=== PATIENT | female | born 1990 | race Caucasian/White ===

== ENCOUNTER 2022-03-06 14:31 | Emergency (ER) | payer OTHER, SELFPAY ==
--- NOTE | 2022-03-06 14:34 | ED.EAR ---
HPI - Ear Problem General Chief complaint: Ear Stated complaint: right ear pressure, dischard Time Seen by Provider: 03/06/22 14:37 Source: patient and RN notes reviewed History of Present Illness HPI Narrative: Patient is a 31-year-old female who presents the urgent care with complaints of right ear pain and pressure. Patient states that she noticed a bump on the ear a couple days ago which popped and has had drainage since last night. Patient states she has been taking Tylenol for the pain. Denies of any other upper respiratory complaints. Patient also use peroxide in her ear. No other acute complaints. No acute distress noted. Patient aware of the plan of care. Some parts of this dictation were generated by voice recognition software and may contain typographical and/or grammatical inaccuracies. Related Data Allergies Allergy/AdvReac Type Severity Reaction Status Date / Time No Known Allergies Allergy Unverified 03/06/22 14:40 Review of Systems Review of Systems: CONSTITUTIONAL: Denies fever, chills, or sweats. EYES: Denies visual changes, redness, or discharge. ENT: Denies rhinorrhea, congestion, sore throat. Reports of right ear pain and pressure with drainage CARDIOVASCULAR: Denies chest pain, palpitations, or edema. RESPIRATORY: Denies cough or dyspnea. GASTROINTESTINAL: Denies abdominal pain, nausea, vomiting, or diarrhea. GENITOURINARY: Denies dysuria or hematuria. SKIN: Denies rash or itching. MUSCULOSKELETAL: Denies back pain, joint pain, or myalgia. NEUROLOGIC: Denies headache, numbness, or weakness. All other systems reviewed are negative, except as documented in HPI. PMFSH Comments At the time of my signature, I reviewed and agree with the nursing past medical, surgical, social, and family history. There is no relevant family history pertinent to the patient complaint. Exam Narrative: GENERAL: This is a well-nourished, well-developed patient, in no apparent distress. HEAD: normocephalic, atraumatic. EYES: PERRL. Sclera clear/white. Vision is grossly intact. EARS: External ears normal, mild to moderate erythema and edema noted to the right auditory canal with scant yellow drainage and what is consistent with impetigo with yellow crusted vesicular lesion. Left auditory canals clear and without drainage, TMs normal without perforation. Hearing grossly intact. NOSE: External nose normal with no obvious nasal discharge, nares without redness, no rhinorrhea. THROAT: Mucous membranes moist NECK: Neck supple CARDIOVASCULAR: Regular rate and rhythm without murmurs, gallops, or rubs. RESPIRATORY: Clear to auscultation. Breath sounds equal bilaterally. No wheezes, rales, or rhonchi. SKIN: warm, intact with no suspicious lesions or rash, good texture and turgor. NEURO: awake, alert, and oriented to person, place and time. There were no obvious focal neurologic abnormalities. EXTREMITIES: No clubbing, cyanosis, or edema. Course Course Level of Care: Express Care Visit Vital Signs Vital signs: Vital Signs Temperature 98.4 F 03/06/22 14:38 Pulse Rate 98 03/06/22 14:38 Respiratory Rate 20 03/06/22 14:38 Blood Pressure 147/86 H 03/06/22 14:38 Pulse Oximetry 100 03/06/22 14:38 Oxygen Delivery Room Air 03/06/22 14:38 Temperature 98.4 F 03/06/22 14:38 Pulse Rate 98 03/06/22 14:38 Respiratory Rate 20 03/06/22 14:38 Blood Pressure 147/86 H 03/06/22 14:38 Pulse Oximetry 100 03/06/22 14:38 Oxygen Delivery Room Air 03/06/22 14:38 Reviewed-patient is informed that they may have pre-hypertension or hypertension based on a blood pressure reading in the department. I recommend the patient call the primary care provider listed on their discharge instructions or a physician of their choice this week to arrange follow-up for further evaluation of possible pre-hypertension or hypertension. Medical Decision Making MDM Narrative Medical decision making narrative: Advised patient to comple
[2022-03-06 14:38] VITALS: BP 147/86; PULSE 98; RESP 20; TEMP 36.9; O2SAT 100
== END 2022-03-06 15:07 | disposition home or self-care (01) ==
PROVIDERS: Emergency Provider Nurse Practitioner Family
DX: L01.00 Impetigo, unspecified (principal); H60.501 Unspecified acute noninfective otitis externa, right ear
CPT/HCPCS: 99203; G0463

== ENCOUNTER 2022-03-17 09:43 | Emergency (ER) | payer OTHER, SELFPAY ==
[2022-03-17 09:47] VITALS: BP 121/76; PULSE 83; RESP 18; TEMP 36.6; O2SAT 98
--- NOTE | 2022-03-17 09:49 | ED.URI ---
HPI - URI/Sore Throat General Chief Complaint: Upper Respiratory Infection Stated Complaint: sinus bronchial issues Time Seen by Provider: 03/17/22 09:48 Source: patient, RN notes reviewed and old records reviewed Mode of arrival: ambulatory Limitations: no limitations History of Present Illness HPI Narrative: 31-year-old female who presents to express care with complaints sinus congestion and drainage of yellowish mucus, of cough and congestion and wheezing for the past 3 days. Patient states that she was previously treated for an ear infection in the past 2 weeks with Bactrim but that has resolved. Patient reports that she has cough with some noted dyspnea with exertion, and noted wheezing.Patient states that she has been taking Sudafed and using OTC Bronkaid and her inhaler.Patient states that cough is causing upper stomach and rib area discomfort and poor sleep.Patient has had Covid vaccinations.Patient reports that she stopped smoking 2 days ago previous /2-1 ppd for 14 years MD elicited complaint: cough Pertinent past history: asthma and other (Bronchitis, tobacco abuse) Onset (ago): day(s) (3) Description of mucous: yellow Able to tolerate fluids by mouth: Yes Treatments prior to arrival: other (sudafed and bronchaid OTC) Related Data Allergies Allergy/AdvReac Type Severity Reaction Status Date / Time No Known Allergies Allergy Unverified 03/17/22 09:48 Review of Systems Review of Systems: CONSTITUTIONAL: Denies fever, chills, or sweats. EYES: Denies visual changes, redness, or discharge. ENT: Positive for rhinorrhea, congestion,no sore throat, or otalgia. CARDIOVASCULAR: Denies chest pain, palpitations, or edema. RESPIRATORY: Positive cough or dyspnea. GASTROINTESTINAL: Denies abdominal pain, nausea, vomiting, or diarrhea. GENITOURINARY: Denies dysuria or hematuria. SKIN: Denies rash or itching. MUSCULOSKELETAL: Denies back pain, joint pain, or myalgia. NEUROLOGIC: Denies headache, numbness, or weakness. PSYCHIATRIC: Denies anxiety or depression. All systems reviewed & are unremarkable except as noted in HPI and below PMFSH Past Medical History Medical History (Updated 03/17/22 @ 10:13 by Elsy Joshi NP) Asthma Bronchitis Surgical History Surgical History (Updated 03/17/22 @ 09:53 by Elsy Joshi NP) History of appendectomy S/P tonsillectomy and adenoidectomy Social History Social History (Updated 03/18/22 @ 10:48 by Elsy Joshi NP) Smoking packs per day: 0.5 Smoking cigarettes per day: 10.0 Years smoked: 14 Smoking pack-years: 7.00 Smoking status: Former smoker Tobacco type: cigarettes Alcohol intake: current Alcohol use details: social Substance use type: does not use Living arrangements: with family Gender identity (if verbalized by the patient): Female Comments At time of signature, agree with nursing past medical, surgical, social and family history. There is no relevant family history pertinent to the presenting complaint Exam Narrative: GENERAL: Well-appearing, well-nourished, and in no acute distress. HEAD: Normocephalic, atraumatic. EYES: PERRLA and EOMI. ENT:Nares red with some yellow tinged rhinorrhea no epistaxis. Mucous membranes moist.TM's normal with good light reflex, throat with some redness no lesion or exudates no tonsils present, post nasal drainage noted. NECK: Supple. no lymphadenopathy CHEST: Scattered wheezing noted on auscultation. No respiratory distress.SAO2 98% on room air, cough harsh HEART: Regular rate and rhythm. No murmur heard. Normal peripheral pulses. ABDOMEN: Soft, nontender, nondistended, normal active bowel sounds. EXTREMITIES: Normal range of motion. No edema. SKIN: Warm, dry, no rash. NEURO: No focal deficits. Alert and oriented x3. Course Course Level of Care: Express Care Visit Vital Signs Vital signs: Vital Signs Temperature 36.6 C 03/17/22 09:47 Pulse Rate 83 03/17/22 09:47 Respiratory Rate 18
[2022-03-17 09:58] VITALS: BP 121/76; PULSE 83; RESP 18; TEMP 36.6; O2SAT 98
== END 2022-03-17 10:25 | disposition home or self-care (01) ==
PROVIDERS: Emergency Provider Registered Nurse
DX: J40 Bronchitis, not specified as acute or chronic (principal); Z87.891 Personal history of nicotine dependence
CPT/HCPCS: 99213; G0463

== ENCOUNTER 2024-09-16 15:34 | Emergency (ER) | payer BC, SELFPAY ==
[2024-09-16 15:41] VITALS: BP 150/85; PULSE 101; RESP 16; TEMP 36.6; O2SAT 99
--- NOTE | 2024-09-16 16:08 | ED_ITS ---
HPI - Skin/Abscess/Foreign Bdy General Chief complaint: Skin/Abscess/Foreign Body Stated complaint: Skin Sore Time Seen by Provider: 09/16/24 16:09 Source: patient and RN notes reviewed Mode of arrival: ambulatory Limitations: dementia History of Present Illness HPI narrative: 34-year-old female presents with concern for a wound on her abdomen. She reports she was seen in urgent care earlier today and was prescribed antibiotics. However her work is requiring her a note to say if she is contagious or not. She denies fever, body aches, chills, sweats MD complaint: other (Redness) Related Data Home Medications ?Medication ?Instructions ?Recorded ?Confirmed ?Last Taken ?Type mupirocin 2 % topical ointment topical 09/16/24 Unknown History sulfamethoxazole 800 tablet 09/16/24 Unknown History mg-trimethoprim 160 mg tablet Allergies Allergy/AdvReac Type Severity Reaction Status Date / Time No Known Allergies Allergy Unverified 09/16/24 15:56 Review of Systems Review of Systems: CONSTITUTIONAL: Denies malaise, chills, sweats, or fever. EYES: Denies redness, or discharge. ENT: Denies rhinorrhea, congestion, swollen lips, swollen tongue CARDIOVASCULAR: Denies chest pain, palpitations, or edema. RESPIRATORY: Denies cough or dyspnea. GASTROINTESTINAL: Denies abdominal pain, nausea, vomiting SKIN: Reports open wound on her abdomen. Denies purulent drainage, vesicles, bullae, numbness, pain beyond proportion MUSCULOSKELETAL: Denies joint pain or myalgia. NEUROLOGIC: Denies headache. All systems reviewed & are unremarkable except as noted in HPI and below PMFSH Past Medical History Medical History (Updated 09/16/24 @ 16:14 by Catia Roque NP) Bronchitis Asthma Surgical History Surgical History (Updated 03/17/22 @ 09:53 by Elsy Joshi NP) S/P tonsillectomy and adenoidectomy History of appendectomy Social History Social History (Updated 03/18/22 @ 10:48 by Elsy Joshi NP) Smoking packs per day: 0.5 Smoking cigarettes per day: 10.0 Years smoked: 14 Smoking pack-years: 7.00 Smoking status: Former smoker Tobacco type: cigarettes Alcohol intake: current Alcohol use details: social Substance use type: does not use Living arrangements: with family Gender identity (if verbalized by the patient): Female Comments At time of signature, agree with nursing past medical, surgical, social and family history. There is no relevant family history pertinent to the presenting complaint Exam Narrative: GENERAL: Well-appearing, well-nourished, and in no acute distress. HEAD: Normocephalic, atraumatic. EYES: PERRLA, conjunctivae clear ENT: Mucous membranes moist. NECK: Supple. No lymphadenopathy CHEST: Clear to auscultation. No respiratory distress. HEART: Regular rate and rhythm. SKIN: Warm, dry. Open wound a approximately 2 cm in diameter with another 1 cm of erythema and induration surrounding it on the abdomen in skin fold. Tissue bed is beefy red without purulent drainage.. No vesicles, bullae, necrosis, ecchymosis, crepitus noted. NEURO: Alert and oriented x3. PSYCH: Normal mood and affect Course Course Emergency Course: Patient is aware of diagnosis, understands and agrees to treatment plan. Anticipatory guidance given. Patient agrees to follow-up as directed and is aware of reasons to seek care at the emergency department. Portions of this record may have been created with voice recognition software Level of Care: Express Care Visit Vital Signs Vital signs: Vital Signs Temperature 97.8 F 09/16/24 15:41 Pulse Rate 101 H 09/16/24 15:41 Respiratory Rate 16 09/16/24 15:41 Blood Pressure 150/85 H 09/16/24 15:41 Pulse Oximetry 99 09/16/24 15:41 Oxygen Delivery Room Air 09/16/24 15:41 Temperature 97.8 F 09/16/24 15:41 Pulse Rate 101 H 09/16/24 15:41 Respiratory Rate 16 09/16/24 15:41 Blood Pressure 150/85 H 09/16/24 15:41 Pulse Oximetry 99 09/16/24 15:41 Oxygen Delivery Room Air 09/16/24 15:41 Reviewed. MDM - Skin/Abscess/Foreign Bdy MDM Narrative Medical decision making narrative: I evaluated this in the express care. History is obtained from patient who is an independent historian and physical exam was performed.? Available medical records were reviewed. ? Exam findings and relevant testing show no acute concerns or changes; patient is non-toxic appearing and is in no distress. No risk factors or findings concerning for epidural abscess, diskitis, vertebral osteomyelitis, cord compression, cauda equina, vertebral fracture or bone malignancy, AAA, or pyelonephritis. Patient instructed to consider further imaging and workup through their primary care physician as an outpatient if symptoms persist. Does not appear at this time to be erythema multiforme, bullous, SJS, TEN; no evidence at this time to suggest RMSF, NSTI, endocarditis or Lyme disease; patient looks well, nontoxic and is tolerating oral intake; no neurologic signs or symptoms; no headache, photophobia or neck pain; afebrile.? Patient does not have history of of penetrating trauma, laceration, blunt trauma, recent surgery, immunosuppression, malignancy, obesity, alcoholism, corticosteroid use.? Discussed the importance of follow-up, patient agrees; question, cellulitis versus necrotizing soft tissue infection versus abscess.?? Patient is appropriate for outpatient treatment and follow-up. Critical Care Time Critical Care Time Critical Care Time: No Discharge Plan Discharge Clinical Impression: Open wound Patient Disposition: Home, Self-Care Condition: Stable Instructions: Antibiotic Form, Acute Wounds (ED) Additional Instructions: Please follow up with your Primary Care Doctor within 48-72 hours - call for an appointment. Keep her wound covered with a nonstick bandage. Take Motrin 600mg every 8 hours with food for pain. Please take Antibiotics as directed. If you experience any worsening redness, swelling, streaking (red lines), fever or chills please go to the ER Patient Language: Urdu Prescriptions: No Action sulfamethoxazole-trimethoprim 800-160 mg tablet mupirocin 2 % ointment TOPICAL albuterol sulfate 90 mcg/actuation HFA aerosol inhaler 2 puff inhalation QID PRN (Reason: shortness of breath or wheezing) Qty: 8.5 5RF Rx Instructions: whatever is covered with insurance Follow-up/Referrals: PHYSICIAN,TRACTOR OPERATOR [employer] [Primary Care Provider] - Stand Alone Forms: Work/School Release IP Time of Disposition: 16:17
--- OUTSIDE RECORDS SUMMARY | 2024-09-16 16:12 | XMS_ITS | Referral Summary ---
Author Organization [facility] Address [address] [place] [address] Care Team Providers Care Senior Recruiter Name Role Phone Unavailable Primary Care Provider Unavailabl e Source Comments [facility],non-owned Affiliates and Associated Physician Practices is amultiple site organization consisting of ambulatory clinics and hospital sitesin [place], [place], [place] and [place]. This disclosure is being madepursuant to the Care Everywhere program and may not contain all information available regarding this patient. Last updated 18.[facility] Social History Tobacco Use Types Packs/Day Years Used Date Smoking Tobacco: Never Assessed Sex and Gender Information Value Date Recorded Sex Assigned at Not on file Gender Identity Not on file Sexual Orientation Not on file Plan of Treatment Not on file
--- OUTSIDE RECORDS SUMMARY | 2024-09-16 16:12 | XMS_ITS | Clinical Summary ---
Author Organization [facility] Address [address] [place] [address] Care Team Providers Care Technology Services Manager Name Role Phone Unavailable Primary Care Provider Unavailabl e Source Comments [facility] [email or web address],non-owned Affiliates and Associated Physician Practices is amultiple site organization consisting of ambulatory clinics and hospital sitesin [place], [place] and [place]. This disclosure is being madepursuant to the Care Everywhere program and may not contain all information available regarding this patient. Last updated 18.[facility] [email or web address] Social History Tobacco Use Types Packs/Day Years Used Date Smoking Tobacco: Never Assessed Sex and Gender Information Value Date Recorded Sex Assigned at Not on file Gender Identity Not on file Sexual Orientation Not on file Plan of Treatment Health Maintenance Due Date Last Done Comments PAP SMEAR 1992 HIV SCREENING 2007 HEPATITIS C SCREENING 08/08/2010 DTAP/TDAP/TD VACCINES (1 - Tdap) 2011 HEPATITIS B VACCINE (1 of 3 - 19+ 3-dose series) 2011 COVID-19 VACCINE ( - 2023-2 5 season) 2024 INFLUENZA VACCINE (#1) 2024 DEPRESSION SCREENING 08/06/2024 ZOSTER VACCINE (1 of 2) 2042 HIB VACCINE Aged Out No longer eligi ble based on patient's age to complete this topic HPV VACCINE Aged Out No longer eligi ble based on patient's age to complete this topic MENINGOCOCCAL (Group B) VACCINE Aged Out No longer eligible based on patient's age to complete this topic MENINGOCOCCAL VACCINE Aged Out No ashley avelino eligible based on patient's age to complete this topic PNEUMOCOCCAL VACCINE Aged Out No long er eligible based on patient's age to complete this topic
--- OUTSIDE RECORDS SUMMARY | 2024-09-16 16:12 | XMS_ITS | Patient Health Summary ---
Author Organization [facility] Address [address] [place] [address] Care Team Providers Care Poultry Cutter Name Role Phone Unavailable Primary Care Provider Unavailabl e Note from [facility],non-owned Affiliates and Associated Physician Practices is amultiple site organization consisting of ambulatory clinics and hospital sitesin [place], [place], [place] and [place]. This disclosure is being madepursuant to the Care Everywhere program and may not contain all information available regarding this patient. Last updated 18.[facility] Social History Tobacco Use Types Packs/Day Years Used Date Smoking Tobacco: Never Assessed Sex and Gender Information Value Date Recorded Sex Assigned at Not on file Gender Identity Not on file Sexual Orientation Not on file
== END 2024-09-16 16:20 | disposition home or self-care (01) ==
PROVIDERS: Emergency Provider Nurse Practitioner
DX: S31.109A Unspecified open wound of abdominal wall, unspecified quadrant without penetration into peritoneal cavity, initial encounter (principal); X58.XXXA Exposure to other specified factors, initial encounter; J45.909 Unspecified asthma, uncomplicated
CPT/HCPCS: 87070; 87075; 87181; 87205; 99212; 99213; G0463

== ENCOUNTER 2024-10-31 18:51 | Emergency (ER) | payer BC, SELFPAY ==
--- OUTSIDE RECORDS SUMMARY | 2024-10-31 18:53 | XMS_ITS | Clinical Summary ---
Author Organization [facility] Address [address] [place] [address] Care Team Providers Care Mud Jack Nozzleman Name Role Phone Unavailable Primary Care Provider Unavailabl e Source Comments [facility] [employer],non-owned Affiliates and Associated Physician Practices is amultiple site organization consisting of ambulatory clinics and hospital sitesin [place], [place], [place] and [place]. This disclosure is being madepursuant to the Care Everywhere program and may not contain all information available regarding this patient. Last updated 18.[facility] Social History Tobacco Use Types Packs/Day Years [...] to complete this topic MENINGOCOCCAL (Group B) VACC INE SHARED DECISION-MAKING Aged Out No longer eligibl e based on patient's age to complete this topic MENINGOCOCCAL GROUPS A/C/Y/W VACCINE Aged Out No longer eligible b ased on patient's age to complete this topic PNEUMOCOCCAL VACCINE Aged Out No long er eligible based on patient's age to complete this topic
[2024-10-31 18:55] VITALS: BP 143/85; PULSE 99; RESP 18; TEMP 36.2; O2SAT 99
--- NOTE | 2024-10-31 18:55 | ED.URI ---
HPI - URI/Sore Throat General Chief Complaint: Upper Respiratory Infection Stated Complaint: nausea/throat/fatigue Time Seen by Provider: 10/31/24 18:55 History of Present Illness HPI Narrative: 34 y/o female presented for c/o sinus congestion and drainage, cough and headache for over one week. Taking nasal spray and Sudafed for symptoms. Denies sore throat, n/v/d/f/c. Related Data Allergies Allergy/AdvReac Type Severity Reaction Status Date / Time No Known Allergies Allergy Unverified 10/31/24 19:00 Review of Systems Review of Systems: CONSTITUTIONAL: Denies body aches, fever, chills, or sweats. EYES: Denies visual changes, redness, or discharge. ENT: reports rhinorrhea, congestion, denies otalgia. CARDIOVASCULAR: Denies chest pain, palpitations, or edema. RESPIRATORY: Denies dyspnea. GASTROINTESTINAL: Denies abdominal pain, nausea, vomiting, or diarrhea. SKIN: Denies rash NEUROLOGIC: Denies headache PMF Past Medical History Medical History (Updated 10/31/24 @ 19:30 by Franca Britton APRN) Bronchitis Asthma Surgical History Surgical History (Updated 03/17/22 @ 09:53 by Elsy Joshi NP) S/P tonsillectomy and adenoidectomy History of appendectomy Social History Social History (Updated 03/18/22 @ 10:48 by Elsy Joshi NP) Smoking packs per day: 0.5 Smoking cigarettes per day: 10.0 Years smoked: 14 Smoking pack-years: 7.00 Smoking status: Former smoker Tobacco type: cigarettes Alcohol intake: current Alcohol use details: social Substance use type: does not use Living arrangements: with family Gender identity (if verbalized by the patient): Female Exam Narrative: GENERAL: well-appearing, no acute distress. EYES: conjunctivae clear ENT: Mucous membranes moist. TMs pearly arredondo with normal light reflex bilaterally; no tragal tenderness. Oropharynx erythematous without lesions. No drooling, no hoarseness, no trismus, uvula midline. No tripod positioning, hot potato voice, or soft palate swelling. NECK: Supple. CHEST: Clear to auscultation, breath sounds equal. No respiratory distress, speaks in full sentences. HEART: Regular rate and rhythm. SKIN: Warm, dry, no rash. NEURO: Alert and oriented x3. Tearful throughout encounter. Course Course Emergency Course: Patient is aware of diagnosis, understands and agrees to treatment plan. Anticipatory guidance given. Patient agrees to follow-up as directed and is aware of reasons to seek care at the emergency department. Portions of this record may have been created with voice recognition software Level of Care: Express Care Visit Vital Signs Vital signs: Vital Signs Temperature 97.2 F L 10/31/24 18:55 Pulse Rate 99 10/31/24 18:55 Respiratory Rate 18 10/31/24 18:55 Blood Pressure 143/85 H 10/31/24 18:55 Pulse Oximetry 99 10/31/24 18:55 Oxygen Delivery Room Air 10/31/24 18:55 Temperature 97.2 F L 10/31/24 18:55 Pulse Rate 99 10/31/24 18:55 Respiratory Rate 18 10/31/24 18:55 Blood Pressure 143/85 H 10/31/24 18:55 Pulse Oximetry 99 10/31/24 18:55 Oxygen Delivery Room Air 10/31/24 18:55 MDM - URI/Sore Throat MDM Narrative Medical decision making narrative: discussed physical exam findings consistent with sinusitis. Advise supportive treatments. Patient is appropriate for outpatient treatment and follow-up. Differential Diagnosis Differential diagnosis: Likely upper respiratory infection, viral infection and pharyngitis Discharge Plan Discharge Clinical Impression: Sinusitis Patient Disposition: Home, Self-Care Condition: Stable Instructions: Antibiotic Form, Sinusitis (ED) Additional Instructions: Recommendations: Flonase spray and Zyrtec (or Claritin/Stephanie) over the counter Cough syrup may cause drowsiness; avoid driving or take it at night time. Tylenol 1000mg every 8 hours as needed for pain Symptomatic treatment includes: rest, fluids, and increase humidity of the air at home. Follow up with your primary care provider in 1 week. Go to the ER for worsening symptoms or concerns. Patient Language: [place]guill[place] Prescriptions: New amoxicillin-pot clavulanate 875-125 mg tablet 1 tablet PO Q12H 7 Days Qty: 14 0RF No Action albuterol sulfate 90 mcg/actuation HFA aerosol inhaler 2 puff inhalation QID PRN (Reason: shortness of breath or wheezing) Qty: 8.5 5RF Rx Instructions: whatever is covered with insurance Follow-up/Referrals: PHYSICIAN,DIRECTOR OF MARKETING OPERATIONS [Primary Care Provider] - Stand Alone Forms: Work/School Release IP Time of Disposition: 19:13
== END 2024-10-31 19:16 | disposition home or self-care (01) ==
PROVIDERS: Emergency Provider Nurse Practitioner Family
DX: J32.9 Chronic sinusitis, unspecified (principal); J45.909 Unspecified asthma, uncomplicated; Z87.891 Personal history of nicotine dependence
CPT/HCPCS: 99213; G0463